=== PATIENT | female | born 1975 | race Two or more races ===

== ENCOUNTER 2023-04-20 10:03 | Outpatient (CLI) | payer OTHER | END 2023-04-20 10:15 | disposition home or self-care (01) | LOC: MAMO-SONO 10:03 | PROVIDERS: ATTEND Obstetrics & Gynecology | DX: N60.11 Diffuse cystic mastopathy of right breast (principal) ==

== ENCOUNTER 2024-09-18 08:08 | Outpatient (CLI) | payer OTHER | END 2024-09-18 08:25 | disposition home or self-care (01) | LOC: MAMO-SONO 08:08 | DX: N64.4 Mastodynia (principal); Z12.31 Encounter for screening mammogram for malignant neoplasm of breast ==

== ENCOUNTER 2024-09-18 09:46 | Outpatient (CLI) | payer OTHER | END 2024-09-18 09:47 | disposition home or self-care (01) | LOC: NUCLEAR 09:46 | DX: M85.89 Other specified disorders of bone density and structure, multiple sites (principal); M81.0 Age-related osteoporosis without current pathological fracture ==